=== PATIENT | female | born 1975 | race Caucasian/White ===

== ENCOUNTER → 2016-02-29 | Outpatient (CLI) | payer OTHER ==
[~2016-02-29] MED LIST: AMOXICILLIN500 MG PO; ATOXIMETIN-B1 CAP PO; CIPROFLOXACIN500 MG PO; DARVOCET N 1001 TAB PO; MOTRIN800 MG PO; Motrin,Rufen800 MG PO; NKHM PO; OMEGA 31000 MG PO; PHENERGAN W/DM120 ML PO; PREDNICOT10 MG PO; PRILOSEC OTC20 MG PO; PROAIR HFA0.09 MG/AC INH; TRAMADOL HCL50 MG PO; VIBRAMYCIN100 MG PO
== END | disposition home or self-care (01) ==
LOC: RAD 10:28
DX: K59.09 Other constipation (principal); R30.0 Dysuria

== ENCOUNTER → 2016-04-24 | Outpatient (CLI) | payer OTHER | END | disposition home or self-care (01) | LOC: RAD 09:36 | DX: K59.00 Constipation, unspecified (principal) ==

== ENCOUNTER → 2016-04-29 | Outpatient (CLI) | payer OTHER | END | disposition home or self-care (01) | LOC: RAD 00:18 | DX: K59.00 Constipation, unspecified (principal) ==

== ENCOUNTER 2017-06-07 16:58 | Emergency (ER) | payer OTHER ==
[~2017-06-07] VITALS: Wt 88.5 kg
[2017-06-07] MEDS ORDERED: CEPHALEXIN500 M1 PO (17:14)
== END 2017-06-07 17:19 | disposition home or self-care (01) ==
LOC: ED 16:58
DX: S60.511A Abrasion of right hand, initial encounter (principal); Z23 Encounter for immunization; Z90.89 Acquired absence of other organs; Z88.1 Allergy status to other antibiotic agents; Z88.8 Allergy status to other drugs, medicaments and biological substances; W22.8XXA Striking against or struck by other objects, initial encounter; Y93.89 Activity, other specified; Y92.89 Other specified places as the place of occurrence of the external cause; Y99.9 Unspecified external cause status

== ENCOUNTER 2017-11-08 13:05 | Emergency (ER) | payer OTHER ==
[~2017-11-08] VITALS: Ht 165.1 cm; Wt 84.8 kg
[~2017-11-08 13:05] MED LIST changes: +CEPHALEXIN500 M1 PO
[2018-01-16] MEDS ORDERED: AMITIZA8 MCG PO (09:56)
== END 2017-11-08 16:05 | disposition home or self-care (01) ==
LOC: ED 13:05
DX: M77.11 Lateral epicondylitis, right elbow (principal); Z88.2 Allergy status to sulfonamides

== ENCOUNTER → 2017-11-22 | Outpatient (CLI) | payer OTHER ==
[~2017-11-22] MED LIST changes: +AMITIZA8 MCG PO
== END | disposition home or self-care (01) ==
LOC: LAB 17:38
DX: L29.0 Pruritus ani (principal)

== ENCOUNTER → 2017-12-06 | Outpatient (CLI) | payer OTHER | END | disposition home or self-care (01) | LOC: LAB 16:28 | DX: L29.0 Pruritus ani (principal) ==

== ENCOUNTER → 2018-01-05 | Outpatient (CLI) | payer OTHER ==
[~2018-01-05] MED LIST changes: -AMITIZA8 MCG PO
== END | disposition home or self-care (01) ==
LOC: LAB 15:46
PROVIDERS: Family Medicine
DX: L29.0 Pruritus ani (principal)

== ENCOUNTER → 2018-01-16 | Day surgery (SDC) | payer OTHER ==
[~2018-01-16] VITALS: Ht 165.1 cm; Wt 81.6 kg
[~2018-01-16] MED LIST changes: +AMITIZA8 MCG PO
--- NOTE | ~2018-01-16 | O ---
[place], [place] OPERATIVE NOTE NAME: BRIAN BRIONES UNIT #: [id number] ROOM: DOCTOR: ZAC BECERRA MD BIRTHDATE: [birth year] DOS: 01/16/2018 GASTROENDOSCOPIC REPORT INDICATIONS: A 42 years old patient who presented with history of constipation with 2-3 bowel movements per week if she takes laxatives. ALLERGIES: BACTRIM. FAMILY HISTORY: Noncontributory. PAST SURGICAL HISTORY: Partial nephrectomy, ablation therapy, tubal ligation, wisdom teeth. PAST MEDICAL HISTORY: Constipation. She took Linzess and she developed diarrhea. SOCIAL HISTORY: Nonsmoker, social alcohol consumer. PROCEDURE: Today's procedure part of investigation is colonoscopy. PREMEDICATION: Propofol. SCOPE: Olympus folding colonoscope 10L video. REPORT: After putting the patient in left lateral position and application of lubricant to the scope, the scope was introduced. Thereafter, under direct visualization, advanced through the length of colon without difficulty. Base of the cecum explored, appendiceal orifice identified, ileocecal valve photographed. Air was suctioned out. The patient was gradually extubated from ascending, transverse, descending colon back to the rectum. Air was removed. The patient extubated, tolerated the procedure well. IMPRESSION: Normal colonoscopic examination except tortuosity of about hepatic flexure. PLAN AND DISCUSSION: High fiber diet. I am going to start her on Amitiza 8 mcg every day to see if that would be a softer approach for her bowel movement since MiraLax and Colace does not help her. However, she has to consume adequate fibers in her diet to have adequate volume to be delivered with the stimulation. [place], [place] OPERATIVE NOTE NAME: BRIAN BRIONES UNIT #: [id number] ROOM: DOCTOR: ZAC BECERRA MD BIRTHDATE: [birth year] ZAC BECERRA MD CM:OPRECORD:OPERATIVE NOTE ZAC BECERRA MD 01/16/18 [id number] interface
--- NOTE | ~2018-01-16 | DS ---
[place], [place] DISCHARGE SUMMARY NAME: [facility]IONES [id number] UNIT #: [id number] ROOM: DOCTOR: ZAC BECERRA MD BIRTHDATE: [birth year] DOS: 01/16/2018 INDICATION FOR PROCEDURE: A 42-year-old patient who has presented with a chief complaint of constipation, undergoing investigation. ALLERGIES: BACTRIM. PAST SURGICAL HISTORY: Tonsillectomy, ablation therapy, and partial nephrectomy. PROCEDURE: Today's procedure part of investigation is colonoscopy. PREMEDICATION: Propofol. REPORT: After putting the patient in left lateral position and application of lubricant to rectal pouch and digital examination, scope was introduced; thereafter, under direct visualization, advanced through the length of colon without difficulty. Redundancy of hepatic flexure was appreciated. Base of the cecum explored. Appendiceal site identified and ileocecal valve was defined. The patient was gradually extubated from ascending, transverse, descending colon, and tolerated the procedure well. IMPRESSION: Normal colonoscopic examination except redundancy of antral tortuosity of the hepatic flexure. PLAN AND DISCUSSION: High fiber diet, Amitiza 8 mcg one a day. Follow up as outpatient. The patient previously has used Linzess, which is leading to her diarrhea and she cannot tolerate. Workup continues as outpatient. We will reassess. ZAC BECERRA MD CM:DISCHARG [id number] ZAC BECERRA MD 01/16/18 1137 interface
[2018-01-16 08:45] VITALS: BP 104/68
[2018-01-16 09:38] VITALS: BP 90/54
[2018-01-16 09:53] VITALS: BP 100/58
[2018-01-16 10:08] VITALS: BP 108/60
== END | disposition home or self-care (01) ==
LOC: SDC 01-14 18:15
DX: K63.89 Other specified diseases of intestine (principal); Z87.891 Personal history of nicotine dependence; Z72.89 Other problems related to lifestyle; Z98.51 Tubal ligation status; Z90.5 Acquired absence of kidney; Z88.1 Allergy status to other antibiotic agents; Z98.890 Other specified postprocedural states